=== PATIENT | male | born 1945 | race Two or more races ===

== ENCOUNTER 2018-02-21 22:05 | Inpatient (IN) | payer BC, MEDICARE, OTHER ==
[~2018-02-21] VITALS: Ht 170.2 cm; Wt 91.6 kg
[2018-02-21 23:47] LABS: Basophils # (auto) 0 uL; Basophils % (auto) 0.3 % (0.0-2.0); Eosinophils # (auto) 0 uL; Eosinophils % (auto) 0.1 % (0.0-7.0); Hematocrit 41.2 % (41.0-53.0); Hemoglobin 13.2 g/dL (13.5-17.5); Lymphocytes # (auto) 1.4 uL; Lymphocytes % (auto) 8.3 % (10.0-50.0); Mean Corpuscular Hemoglobin 28.5 pg (28.0-32.0); Mean Corpuscular Hgb Conc. 31.9 g/dL (32.0-36.0); Mean Corpuscular Volume 89.3 fL (80.0-100.0); Monocytes # (auto) 2.8 uL; Monocytes % (auto) 17.1 % (0.0-12.0); Neutrophils # (auto) 12.2 uL; Neutrophils % (auto) 74.2 % (37.0-80.0); Platelet Count (auto) 266 10^3/uL (140-450); Red Blood Cells 4.61 10^6/uL (4.5-5.90); Red Cell Distribution Width 17.6 % (11.8-14.3); White Blood Cell 16.4 10^3/uL (4.4-10.8)
[2018-02-21 23:54] LABS: INR 1.05 (0.9-1.15); Partial Thromboplastin Time 28.5 sec (23.78-33.04); Prothrombin Time 11.2 sec (9.27-12.13)
[2018-02-22 00:03] LABS: Albumin 3.2 g/dL (3.4-5.0); BUN/Creatinine Ratio 15.7; Calcium 8.9 mg/dL (8.5-10.1); Potassium 4.5 mmol/L (3.5-5.1)
[2018-02-22 00:06] LABS: Bilirubin, Total 0.7 mg/dL (0.2-1.0); Total Protein 7.8 g/dL (6.4-8.2)
[2018-02-22 00:37] LABS: Blood Alcohol < 3.0 mg/dL (0-5); Magnesium 2.2 mg/dL (1.6-2.6)
[2018-02-22 01:10] LABS: Urine Bacteria FEW /hpf (None Seen); Urine Blood Negative /uL (Negative); Urine Mucus FEW (None Seen); Urine Specific Gravity 1.025 (1.001-1.035); Urine WBC 5 /hpf (0 - 3)
[2018-02-22 01:25] LABS: Amphetamine Screen, Urine NEGATIVE (NEGATIVE); Barbiturate Scree,Urine NEGATIVE (NEGATIVE); Benzodiazephine Screen, Urine NEGATIVE (NEGATIVE); Cannabinoid Screen, Urine NEGATIVE (NEGATIVE); Cocaine Screen, Urine NEGATIVE (NEGATIVE); Opiate Scree,Urine NEGATIVE (NEGATIVE); Phencyclidine Screen, Urine NEGATIVE (NEGATIVE)
[2018-02-22] MEDS ORDERED: LORazepam 2MG/ML-1ML VIAL IV ONE ×3 (03:00→09:15)
[2018-02-22] MEDS ORDERED: SODIUM CHLORIDE 0.9% 1,000 ML IV ONE (04:15)
[2018-02-22] MEDS ORDERED: CLINDAMYCIN 900MG IV 50 ML IV ONE (04:15)
[2018-02-22] MEDS ORDERED: PIPERACILLIN-TAZOB 3.375GM 100 ML IV ONE (04:15)
[2018-02-22] MEDS ORDERED: ONDANSETRON HCL 4 MG/2 ML VIAL IV PRN (09:45)
[2018-02-22] MEDS ORDERED: DOCUSATE SOD 100 MG CAP PO PRN (09:45)
[2018-02-22] MEDS ORDERED: NITROGLYCERIN 0.4 MG SL TAB SL PRN (09:45)
[2018-02-22] MEDS ORDERED: ASPirin-EC 81 mg tab PO SCH (10:00)
[2018-02-22] MEDS ORDERED: FAMOTIDINE 20 MG TAB PO SCH (10:00)
[2018-02-22] MEDS: LISINOPRIL 10 MG TAB PO SCH (10:18)
[2018-02-22] MEDS: predniSONE 20 MG TAB PO SCH (10:19)
[2018-02-22] MEDS: PANTOPRAZOLE 40 MG TAB PO SCH (10:19)
[2018-02-22] MEDS: ZINC SULFATE 220mg CAP or TAB PO SCH (10:19)
[2018-02-22] MEDS: ASCORBIC ACID 500 MG TAB PO SCH ×2 (10:19→20:13)
[2018-02-22] MEDS: APIXABAN 5 MG TAB PO SCH ×2 (10:20→20:13)
[2018-02-22] MEDS: MULTIPLE VITAMIN TAB PO SCH (10:20)
[2018-02-22] MEDS: PIPERACILLIN-TAZOB 3.375GM 100 ML IV SCH ×3 (10:30→23:00)
[2018-02-22] MEDS: SODIUM CHLORIDE 0.9% 1,000 ML IV SCH (10:30)
[2018-02-22] MEDS: CLINDAMYCIN 300MG IV 50 ML IV SCH ×2 (13:07→20:13)
[2018-02-22] MEDS: MORPHINE SULF INJ 2 MG/ML SYRINGE 1ML IV PRN ×2 (13:36→20:52)
[2018-02-22 15:00] VITALS: BP 110/76
[2018-02-22 18:49] LABS: Folate (Folic Acid) 11.3 ng/mL (5.38-24)
[2018-02-22] MEDS: ATORVASTATIN 20 MG TAB PO SCH (20:13)
[2018-02-22 22:00] VITALS: BP 137/92
[2018-02-23] VITALS (34 sets, daily range): BP systolic 57–137; BP diastolic 31–95
[2018-02-23] MEDS ORDERED: LISI10TA6 PO (00:29)
[2018-02-23] MEDS ORDERED: MIRT30TA PO (00:34)
[2018-02-23] MEDS ORDERED: TAMS0.4C36 PO (00:35)
[2018-02-23] MEDS ORDERED: SULF500T8 PO (00:37)
[2018-02-23] MEDS ORDERED: OXY20CRT PO (00:56)
[2018-02-23] MEDS ORDERED: BUPR100T14 PO (00:56)
[2018-02-23] MEDS ORDERED: RIVA20TA PO (00:56)
[2018-02-23] MEDS ORDERED: CHOL20007 PO (00:56)
[2018-02-23] MEDS ORDERED: ATO40T PO (00:56)
[2018-02-23] MEDS ORDERED: PANT1INJ3 PO (00:56)
[2018-02-23] MEDS ORDERED: CALC667C PO (00:56)
[2018-02-23] MEDS ORDERED: METO-159 PO (00:56)
[2018-02-23] MEDS ORDERED: PRE5T PO (00:56)
[2018-02-23] MEDS ORDERED: DOCU-94 PO (00:56)
[2018-02-23] MEDS ORDERED: FLUT1SPR5 (00:56)
[2018-02-23] MEDS ORDERED: FEXO24TA9 PO (00:56)
[2018-02-23] MEDS ORDERED: OXY5T PO (00:56)
[2018-02-23] MEDS: MORPHINE SULF INJ 2 MG/ML SYRINGE 1ML IV PRN ×3 (01:10→22:00)
[2018-02-23] MEDS: SODIUM CHLORIDE 0.9% 1,000 ML IV SCH ×3 (02:16→20:28)
[2018-02-23 02:26] LABS: Basophils # (auto) 0 uL; Basophils % (auto) 0.5 % (0.0-2.0); Eosinophils # (auto) 0.1 uL; Eosinophils % (auto) 1.2 % (0.0-7.0); Hematocrit 41.3 % (41.0-53.0); Hemoglobin 13.2 g/dL (13.5-17.5); Lymphocytes # (auto) 0.3 uL; Lymphocytes % (auto) 3.6 % (10.0-50.0); Mean Corpuscular Hemoglobin 28.8 pg (28.0-32.0); Mean Corpuscular Hgb Conc. 31.9 g/dL (32.0-36.0); Mean Corpuscular Volume 90.1 fL (80.0-100.0); Monocytes # (auto) 1.1 uL; Monocytes % (auto) 13.2 % (0.0-12.0); Neutrophils # (auto) 6.6 uL; Neutrophils % (auto) 81.5 % (37.0-80.0); Platelet Count (auto) 266 10^3/uL (140-450); Red Blood Cells 4.58 10^6/uL (4.5-5.90); Red Cell Distribution Width 17.6 % (11.8-14.3); White Blood Cell 8.1 10^3/uL (4.4-10.8)
[2018-02-23 02:44] LABS: Alanine Aminotransferase 34 U/L (16-61); Albumin 2.6 g/dL (3.4-5.0); Anion Gap 10 (5-15); Aspartate Aminotransferase 57 U/L (15-37); BUN/Creatinine Ratio 13.3; Blood Urea Nitrogen 18 mg/dL (7-18); Carbon Dioxide 21 mmol/L (21-32); Chloride 101 mmol/L (98-107); GFR African American 66 mL/min; GFR Non-African American 55 mL/min; Glucose 108 mg/dL (74-106); Potassium 4.5 mmol/L (3.5-5.1); Sodium 132 mmol/L (136-145)
[2018-02-23 02:49] LABS: Alkaline Phosphatase 132 U/L (45-117); Bilirubin, Total 0.8 mg/dL (0.2-1.0); Total Protein 6.9 g/dL (6.4-8.2)
[2018-02-23] MEDS: PIPERACILLIN-TAZOB 3.375GM 100 ML IV SCH ×4 (03:52→21:16)
[2018-02-23] MEDS ORDERED: METOPROLOL TARTRATE 1MG/1ML-5ML VIAL IV ONE ×2 (04:00→07:00)
[2018-02-23] MEDS: CLINDAMYCIN 300MG IV 50 ML IV SCH ×3 (05:03→21:16)
[2018-02-23] MEDS ORDERED: DILTIAZEM HCL 25 MG/5 ML VIAL IV ONE (06:45)
[2018-02-23] MEDS ORDERED: IBUPROFEN 600 MG TAB PO PRN (07:00)
[2018-02-23] MEDS: HALOPERIDOL LACTATE 5 MG/ML INJ VIAL IM PRN (09:16)
[2018-02-23] MEDS: MULTIPLE VITAMIN TAB PO SCH (10:00)
[2018-02-23] MEDS: APIXABAN 5 MG TAB PO SCH ×2 (10:00→21:16)
[2018-02-23] MEDS: PANTOPRAZOLE 40 MG TAB PO SCH (10:00)
[2018-02-23] MEDS: CYANOCOBALAMIN 500 MCG TAB PO SCH (10:00)
[2018-02-23] MEDS: LISINOPRIL 10 MG TAB PO SCH (10:00)
[2018-02-23] MEDS: METOPROLOL TARTRATE 50 MG TAB PO SCH (10:00)
[2018-02-23] MEDS: predniSONE 20 MG TAB PO SCH (10:00)
[2018-02-23] MEDS: ZINC SULFATE 220mg CAP or TAB PO SCH (10:00)
[2018-02-23] MEDS: ASCORBIC ACID 500 MG TAB PO SCH ×2 (10:00→21:16)
[2018-02-23] MEDS ORDERED: ACETAMINOPHEN 500 MG TAB PO PRN (12:15)
[2018-02-23] MEDS ORDERED: IBUPROFEN 100MG/5ML ORAL SUSP 100 MG/5 ML UD GT PRN (12:30)
[2018-02-23] MEDS ORDERED: AMIODARONE HCL 150 MG in D5W 5% 100 ML IV ONE (12:30)
[2018-02-23] MEDS ORDERED: SODIUM CHLORIDE 0.9% 1,000 ML IV ONE (12:30)
[2018-02-23] MEDS ORDERED: AMIODARONE HCL 900 MG in DEXTROSE 500 ML IV SCH ×2 (12:37→15:14)
[2018-02-23] MEDS ORDERED: SODIUM CHLORIDE 0.9% 500 ML IV ONE (15:45)
[2018-02-23] MEDS: NOREPINEPHRINE 8 MG/250ML KIT 250 ML IV SCH (16:45)
[2018-02-23] MEDS: AMIODARONE HCL 900 MG in DEXTROSE 500 ML IV SCH (21:14)
[2018-02-23] MEDS: ATORVASTATIN 20 MG TAB PO SCH (21:17)
[2018-02-24] VITALS (91 sets, daily range): BP systolic 65–133; BP diastolic 17–90
[2018-02-24] MEDS: MORPHINE SULF INJ 2 MG/ML SYRINGE 1ML IV PRN (00:26)
[2018-02-24] MEDS: HALOPERIDOL LACTATE 5 MG/ML INJ VIAL IM PRN (00:54)
[2018-02-24] MEDS: PIPERACILLIN-TAZOB 3.375GM 100 ML IV SCH ×4 (04:00→21:37)
[2018-02-24] MEDS: CLINDAMYCIN 300MG IV 50 ML IV SCH (05:00)
[2018-02-24 06:20] LABS: Basophils # (auto) 0 uL; Basophils % (auto) 0.1 % (0.0-2.0); Eosinophils # (auto) 0 uL; Hematocrit 39.5 % (41.0-53.0); Lymphocytes # (auto) 0.2 uL; Lymphocytes % (auto) 1.3 % (10.0-50.0); Mean Corpuscular Hemoglobin 30.1 pg (28.0-32.0); Mean Corpuscular Volume 91.3 fL (80.0-100.0); Monocytes # (auto) 1.8 uL; Monocytes % (auto) 12.5 % (0.0-12.0); Neutrophils # (auto) 12.5 uL; Neutrophils % (auto) 86.1 % (37.0-80.0); Platelet Count (auto) 244 10^3/uL (140-450); Red Blood Cells 4.33 10^6/uL (4.5-5.90); Red Cell Distribution Width 17.5 % (11.8-14.3); White Blood Cell 14.5 10^3/uL (4.4-10.8)
[2018-02-24 06:23] LABS: Lactic Acid w/Reflex 4.1 mmol/L (0.4-2.0)
[2018-02-24 06:26] LABS: Albumin 2.1 g/dL (3.4-5.0); Calcium 7.8 mg/dL (8.5-10.1)
[2018-02-24 06:30] LABS: BUN/Creatinine Ratio 17.8; Bilirubin, Total 0.9 mg/dL (0.2-1.0); Total Protein 6.3 g/dL (6.4-8.2)
[2018-02-24] MEDS: NOREPINEPHRINE 8 MG/250ML KIT 250 ML IV SCH ×2 (07:58→20:56)
[2018-02-24] MEDS ORDERED: VANCOMYCIN PER PHARMACY 0 MG IV SCH (08:15)
[2018-02-24] MEDS ORDERED: VANCOMYCIN 1GM/250ML 250 ML IV ONE (09:00)
[2018-02-24] MEDS: APIXABAN 5 MG TAB PO SCH ×2 (09:32→21:37)
[2018-02-24] MEDS: METOPROLOL TARTRATE 50 MG TAB PO SCH (09:32)
[2018-02-24] MEDS: ZINC SULFATE 220mg CAP or TAB PO SCH (09:32)
[2018-02-24] MEDS: predniSONE 20 MG TAB PO SCH (09:32)
[2018-02-24] MEDS: PANTOPRAZOLE 40 MG TAB PO SCH (09:33)
[2018-02-24] MEDS: MULTIPLE VITAMIN TAB PO SCH (09:33)
[2018-02-24] MEDS: ASCORBIC ACID 500 MG TAB PO SCH ×2 (09:34→21:37)
[2018-02-24] MEDS: LISINOPRIL 10 MG TAB PO SCH (09:34)
[2018-02-24] MEDS: CYANOCOBALAMIN 500 MCG TAB PO SCH (09:34)
[2018-02-24] MEDS ORDERED: SODIUM CHLORIDE 0.9% 500 ML IV ONE (13:00)
[2018-02-24 13:36] LABS: Urine Bacteria NONE SEEN /hpf (None Seen); Urine Blood 1+ /uL (Negative); Urine WBC 8 /hpf (0 - 3)
[2018-02-24 15:34] LABS: Protein, Urine 116.1 mg/dL (0.0-11.9)
[2018-02-24] MEDS: AMIODARONE HCL 900 MG in DEXTROSE 500 ML IV SCH (15:38)
[2018-02-24] MEDS: SODIUM CHLORIDE 0.9% 1,000 ML IV SCH (20:54)
[2018-02-24] MEDS: ATORVASTATIN 20 MG TAB PO SCH (21:37)
[2018-02-25] VITALS (73 sets, daily range): BP systolic 82–153; BP diastolic 39–101
[2018-02-25] MEDS: MORPHINE SULF INJ 2 MG/ML SYRINGE 1ML IV PRN (01:46)
[2018-02-25] MEDS: PIPERACILLIN-TAZOB 3.375GM 100 ML IV SCH ×4 (04:45→21:47)
[2018-02-25 05:51] LABS: Lactic Acid w/Reflex 2.2 mmol/L (0.4-2.0)
[2018-02-25 05:56] LABS: Albumin 1.8 g/dL (3.4-5.0); BUN/Creatinine Ratio 23.1; Bilirubin, Total 0.6 mg/dL (0.2-1.0); Calcium 7.7 mg/dL (8.5-10.1); Phosphorus 2.2 mg/dL (2.5-4.90); Potassium 3.2 mmol/L (3.5-5.1); Total Protein 5.8 g/dL (6.4-8.2); Uric Acid 6.9 mg/dL (3.5-7.2)
[2018-02-25 06:07] LABS: Basophils # (auto) 0 uL; Basophils % (auto) 0.2 % (0.0-2.0); Eosinophils # (auto) 0 uL; Eosinophils % (auto) 0.2 % (0.0-7.0); Hematocrit 35.1 % (41.0-53.0); Hemoglobin 11.4 g/dL (13.5-17.5); Lymphocytes # (auto) 0.5 uL; Mean Corpuscular Hemoglobin 29.2 pg (28.0-32.0); Mean Corpuscular Hgb Conc. 32.4 g/dL (32.0-36.0); Monocytes # (auto) 2.5 uL; Monocytes % (auto) 16.4 % (0.0-12.0); Neutrophils # (auto) 12.3 uL; Neutrophils % (auto) 80.2 % (37.0-80.0); Platelet Count (auto) 206 10^3/uL (140-450); Red Cell Distribution Width 17.4 % (11.8-14.3); White Blood Cell 15.3 10^3/uL (4.4-10.8)
[2018-02-25] MEDS ORDERED: VANCOMYCIN 1GM/250ML 250 ML IV ONE (09:00)
[2018-02-25] MEDS: SODIUM CHLORIDE 0.9% 1,000 ML IV SCH ×3 (09:03→19:57)
[2018-02-25] MEDS ORDERED: POTASSIUM CHL 20 Meq TABLET PO ONE ×2 (10:00→12:15)
[2018-02-25] MEDS: ASCORBIC ACID 500 MG TAB PO SCH ×2 (11:16→21:47)
[2018-02-25] MEDS: METOPROLOL SUCCINATE XL 50 MG TAB PO SCH (11:16)
[2018-02-25] MEDS: PANTOPRAZOLE 40 MG TAB PO SCH (11:16)
[2018-02-25] MEDS: MULTIPLE VITAMIN TAB PO SCH (11:16)
[2018-02-25] MEDS: predniSONE 20 MG TAB PO SCH (11:16)
[2018-02-25] MEDS: ZINC SULFATE 220mg CAP or TAB PO SCH (11:17)
[2018-02-25] MEDS: APIXABAN 5 MG TAB PO SCH ×2 (11:17→21:47)
[2018-02-25] MEDS: CYANOCOBALAMIN 500 MCG TAB PO SCH (11:17)
[2018-02-25] MEDS: ATORVASTATIN 20 MG TAB PO SCH (21:47)
[2018-02-25] MEDS: AMIODARONE HCL 900 MG in DEXTROSE 500 ML IV SCH (23:37)
[2018-02-26] VITALS (62 sets, daily range): BP systolic 96–175; BP diastolic 44–106
[2018-02-26] MEDS: MORPHINE SULFATE 4 MG/ML SYR/VIAL IV PRN ×2 (02:20→12:30)
[2018-02-26] MEDS: SODIUM CHLORIDE 0.9% 1,000 ML IV SCH ×2 (03:53→13:33)
[2018-02-26] MEDS: PIPERACILLIN-TAZOB 3.375GM 100 ML IV SCH ×4 (03:53→21:52)
[2018-02-26 05:23] LABS: Basophils # (auto) 0 uL; Basophils % (auto) 0.1 % (0.0-2.0); Eosinophils # (auto) 0.1 uL; Eosinophils % (auto) 0.9 % (0.0-7.0); Hematocrit 32.4 % (41.0-53.0); Hemoglobin 10.4 g/dL (13.5-17.5); Lymphocytes # (auto) 0.6 uL; Lymphocytes % (auto) 4.6 % (10.0-50.0); Mean Corpuscular Hemoglobin 28.4 pg (28.0-32.0); Mean Corpuscular Volume 88.8 fL (80.0-100.0); Monocytes # (auto) 1.9 uL; Monocytes % (auto) 14.6 % (0.0-12.0); Neutrophils # (auto) 10.4 uL; Neutrophils % (auto) 79.8 % (37.0-80.0); Platelet Count (auto) 178 10^3/uL (140-450); Red Blood Cells 3.65 10^6/uL (4.5-5.90); Red Cell Distribution Width 17.8 % (11.8-14.3)
[2018-02-26 05:56] LABS: Albumin 1.7 g/dL (3.4-5.0); BUN/Creatinine Ratio 27.5; Bilirubin, Total 0.5 mg/dL (0.2-1.0); Calcium 7.7 mg/dL (8.5-10.1); Potassium 3.5 mmol/L (3.5-5.1); Total Protein 5.5 g/dL (6.4-8.2)
[2018-02-26] MEDS ORDERED: VANCOMYCIN 1GM/250ML 250 ML IV ONE (10:00)
[2018-02-26] MEDS: ZINC SULFATE 220mg CAP or TAB PO SCH (10:03)
[2018-02-26] MEDS: METOPROLOL SUCCINATE XL 50 MG TAB PO SCH (10:04)
[2018-02-26] MEDS: PANTOPRAZOLE 40 MG TAB PO SCH (10:04)
[2018-02-26] MEDS: APIXABAN 5 MG TAB PO SCH ×2 (10:04→21:33)
[2018-02-26] MEDS: MULTIPLE VITAMIN TAB PO SCH (10:04)
[2018-02-26] MEDS: CYANOCOBALAMIN 500 MCG TAB PO SCH (10:04)
[2018-02-26] MEDS: ASCORBIC ACID 500 MG TAB PO SCH ×2 (10:04→21:33)
[2018-02-26] MEDS: predniSONE 20 MG TAB PO SCH (10:05)
[2018-02-26] MEDS: NOREPINEPHRINE 8 MG/250ML KIT 250 ML IV SCH (16:19)
[2018-02-26] MEDS: cloNIDine HCL 0.1 MG TAB PO PRN (17:40)
[2018-02-26] MEDS ORDERED: BRIM0.1S3 RIGHTEYE (18:33)
[2018-02-26] MEDS ORDERED: DORZ1SOL RIGHTEYE (18:33)
[2018-02-26] MEDS: AMIODARONE HCL 900 MG in DEXTROSE 500 ML IV SCH (21:14)
[2018-02-26] MEDS: ATORVASTATIN 20 MG TAB PO SCH (21:33)
[2018-02-26] MEDS ORDERED: FUROSEMIDE 20 MG/2 ML VIAL ONE (21:43)
[2018-02-26] MEDS ORDERED: FUROSEMIDE 20 MG/2 ML VIAL IV ONE (21:45)
[2018-02-27] VITALS (68 sets, daily range): BP systolic 114–178; BP diastolic 71–123
[2018-02-27] MEDS: SODIUM CHLORIDE 0.9% 1,000 ML IV SCH ×3 (00:30→16:30)
[2018-02-27] MEDS: PIPERACILLIN-TAZOB 3.375GM 100 ML IV SCH ×4 (03:29→21:26)
[2018-02-27 05:31] LABS: Calcium 7.8 mg/dL (8.5-10.1); Potassium 3.3 mmol/L (3.5-5.1)
[2018-02-27 05:33] LABS: BUN/Creatinine Ratio 18.6
[2018-02-27 05:58] LABS: Hemoglobin 10.4 g/dL (13.5-17.5); Mean Corpuscular Hemoglobin 29.4 pg (28.0-32.0); Mean Corpuscular Hgb Conc. 32.5 g/dL (32.0-36.0); Mean Corpuscular Volume 90.4 fL (80.0-100.0); Platelet Count (auto) 196 10^3/uL (140-450); Red Blood Cells 3.54 10^6/uL (4.5-5.90); Red Cell Distribution Width 17.6 % (11.8-14.3); White Blood Cell 11.4 10^3/uL (4.4-10.8)
[2018-02-27 06:06] LABS: Basophils % (manual) 0 (0.0-2.0); Blast Cells 0; Metamyelocytes % 0; Myelocytes % 0; Promyelocytes % 0; Reactive Lymphocytes 0
[2018-02-27 08:23] LABS: Band Neutrophils % (manual) 6; Eosinophils % (manual) 3 (0-7); Lymphocytes % (manual) 6 (10.0-50.0); Monocytes % (manual) 15 (0-12)
[2018-02-27] MEDS: PANTOPRAZOLE 40 MG TAB PO SCH (10:03)
[2018-02-27] MEDS: CYANOCOBALAMIN 500 MCG TAB PO SCH (10:03)
[2018-02-27] MEDS: ASCORBIC ACID 500 MG TAB PO SCH ×2 (10:03→21:26)
[2018-02-27] MEDS: APIXABAN 5 MG TAB PO SCH ×2 (10:03→21:26)
[2018-02-27] MEDS: METOPROLOL SUCCINATE XL 50 MG TAB PO SCH (10:04)
[2018-02-27] MEDS: MULTIPLE VITAMIN TAB PO SCH (10:04)
[2018-02-27] MEDS: predniSONE 20 MG TAB PO SCH (10:04)
[2018-02-27] MEDS: ZINC SULFATE 220mg CAP or TAB PO SCH (10:04)
[2018-02-27] MEDS: AMIODARONE HCL 900 MG in DEXTROSE 500 ML IV SCH (10:39)
[2018-02-27] MEDS ORDERED: POTASSIUM CHL 20 Meq TABLET PO ONE ×2 (10:45→11:17)
[2018-02-27] MEDS: VANCOMYCIN 1GM/250ML 250 ML IV SCH (11:23)
[2018-02-27] MEDS: NOREPINEPHRINE 8 MG/250ML KIT 250 ML IV SCH (15:41)
[2018-02-27] MEDS: ATORVASTATIN 20 MG TAB PO SCH (21:26)
[2018-02-27] MEDS: cloNIDine HCL 0.1 MG TAB PO PRN (21:27)
[2018-02-28] VITALS (10 sets, daily range): BP systolic 109–179; BP diastolic 61–103
[2018-02-28] MEDS: SODIUM CHLORIDE 0.9% 1,000 ML IV SCH ×3 (00:22→11:13)
[2018-02-28] MEDS: PIPERACILLIN-TAZOB 3.375GM 100 ML IV SCH ×4 (04:01→22:13)
[2018-02-28] MEDS: MORPHINE SULFATE 4 MG/ML SYR/VIAL IV PRN ×2 (04:18→12:09)
[2018-02-28] MEDS: VANCOMYCIN 1GM/250ML 250 ML IV SCH ×2 (05:01→23:32)
[2018-02-28 06:00] LABS: Hemoglobin 10.1 g/dL (13.5-17.5); Mean Corpuscular Hemoglobin 29.8 pg (28.0-32.0); Mean Corpuscular Hgb Conc. 33.6 g/dL (32.0-36.0); Mean Corpuscular Volume 88.6 fL (80.0-100.0); Platelet Count (auto) 217 10^3/uL (140-450); Red Blood Cells 3.39 10^6/uL (4.5-5.90); Red Cell Distribution Width 17.3 % (11.8-14.3)
[2018-02-28 06:04] LABS: Albumin 1.6 g/dL (3.4-5.0); Calcium 7.8 mg/dL (8.5-10.1); Potassium 3.4 mmol/L (3.5-5.1)
[2018-02-28 06:06] LABS: BUN/Creatinine Ratio 20.6
[2018-02-28 06:09] LABS: Bilirubin, Total 0.6 mg/dL (0.2-1.0); Total Protein 5.2 g/dL (6.4-8.2)
[2018-02-28] MEDS: cloNIDine HCL 0.1 MG TAB PO PRN (06:14)
[2018-02-28 06:19] LABS: Basophils % (manual) 0 (0.0-2.0); Blast Cells 0; Metamyelocytes % 0; Myelocytes % 0; Promyelocytes % 0; Reactive Lymphocytes 0
[2018-02-28 08:36] LABS: Band Neutrophils % (manual) 2; Eosinophils % (manual) 3 (0-7); Lymphocytes % (manual) 7 (10.0-50.0); Monocytes % (manual) 13 (0-12)
[2018-02-28] MEDS ORDERED: POTASSIUM CHL 20 Meq TABLET PO ONE (10:30)
[2018-02-28] MEDS: MULTIPLE VITAMIN TAB PO SCH (10:46)
[2018-02-28] MEDS: predniSONE 20 MG TAB PO SCH (10:46)
[2018-02-28] MEDS: ZINC SULFATE 220mg CAP or TAB PO SCH (10:47)
[2018-02-28] MEDS: ASCORBIC ACID 500 MG TAB PO SCH ×2 (10:47→22:13)
[2018-02-28] MEDS: APIXABAN 5 MG TAB PO SCH ×2 (10:47→22:12)
[2018-02-28] MEDS: CYANOCOBALAMIN 500 MCG TAB PO SCH (10:47)
[2018-02-28] MEDS: PANTOPRAZOLE 40 MG TAB PO SCH (10:47)
[2018-02-28] MEDS: AMIODARONE HCL 200 MG TAB PO SCH ×2 (10:47→22:13)
[2018-02-28] MEDS: METOPROLOL SUCCINATE XL 50 MG TAB PO SCH (10:49)
[2018-02-28] MEDS ORDERED: ALBUTEROL SULF 2.5 MG/0.5ML(0.5%) NEB SOLN NEB ONE (11:15)
[2018-02-28] MEDS: ALBUTEROL SULF 2.5 MG/0.5ML(0.5%) NEB SOLN NEB SCH ×3 (14:24→22:24)
[2018-02-28] MEDS: ATORVASTATIN 20 MG TAB PO SCH (22:13)
[2018-03-01] VITALS: BP 141/83
[2018-03-01] MEDS: ALBUTEROL SULF 2.5 MG/0.5ML(0.5%) NEB SOLN NEB SCH ×7 (00:40→22:30)
[2018-03-01 04:00] VITALS: BP 89/46
[2018-03-01] MEDS: PIPERACILLIN-TAZOB 3.375GM 100 ML IV SCH ×4 (05:21→21:38)
[2018-03-01] MEDS: SODIUM CHLORIDE 0.9% 1,000 ML IV SCH ×3 (05:22→21:38)
[2018-03-01 05:32] LABS: Hematocrit 29.4 % (41.0-53.0); Hemoglobin 9.7 g/dL (13.5-17.5); Mean Corpuscular Hemoglobin 29.3 pg (28.0-32.0); Mean Corpuscular Hgb Conc. 32.8 g/dL (32.0-36.0); Mean Corpuscular Volume 89.2 fL (80.0-100.0); Platelet Count (auto) 262 10^3/uL (140-450); Red Cell Distribution Width 17.3 % (11.8-14.3)
[2018-03-01 05:35] LABS: Basophils % (manual) 0 (0.0-2.0); Blast Cells 0; Myelocytes % 0; Promyelocytes % 0; Reactive Lymphocytes 0
[2018-03-01 06:02] LABS: Albumin 1.7 g/dL (3.4-5.0); Calcium 7.9 mg/dL (8.5-10.1); Potassium 3.8 mmol/L (3.5-5.1)
[2018-03-01 06:05] LABS: BUN/Creatinine Ratio 13.6
[2018-03-01 06:08] LABS: Bilirubin, Total 0.5 mg/dL (0.2-1.0); Total Protein 5.5 g/dL (6.4-8.2)
[2018-03-01 06:26] LABS: Band Neutrophils % (manual) 3; Eosinophils % (manual) 2 (0-7); Lymphocytes % (manual) 11 (10.0-50.0); Metamyelocytes % 2; Monocytes % (manual) 10 (0-12)
[2018-03-01 07:30] VITALS: BP 141/90
[2018-03-01] MEDS: ASCORBIC ACID 500 MG TAB PO SCH ×2 (09:30→21:38)
[2018-03-01] MEDS: METOPROLOL SUCCINATE XL 50 MG TAB PO SCH (09:30)
[2018-03-01] MEDS: CYANOCOBALAMIN 500 MCG TAB PO SCH (09:30)
[2018-03-01] MEDS: MULTIPLE VITAMIN TAB PO SCH (09:30)
[2018-03-01] MEDS: ZINC SULFATE 220mg CAP or TAB PO SCH (09:30)
[2018-03-01] MEDS: PANTOPRAZOLE 40 MG TAB PO SCH (09:30)
[2018-03-01] MEDS: predniSONE 20 MG TAB PO SCH (09:30)
[2018-03-01] MEDS: AMIODARONE HCL 200 MG TAB PO SCH ×2 (09:31→21:38)
[2018-03-01] MEDS: APIXABAN 5 MG TAB PO SCH ×2 (10:27→21:38)
[2018-03-01 12:00] VITALS: BP 150/85
[2018-03-01] MEDS: MORPHINE SULFATE 4 MG/ML SYR/VIAL IV PRN (13:13)
[2018-03-01 17:00] VITALS: BP 156/91
[2018-03-01] MEDS: VANCOMYCIN 1GM/250ML 250 ML IV SCH (17:00)
[2018-03-01 20:34] VITALS: BP 130/80
[2018-03-01] MEDS: MORPHINE SULF INJ 2 MG/ML SYRINGE 1ML IV PRN (21:16)
[2018-03-01] MEDS: ATORVASTATIN 20 MG TAB PO SCH (21:39)
[2018-03-02] MEDS: MORPHINE SULFATE 4 MG/ML SYR/VIAL IV PRN ×2 (03:07→09:49)
[2018-03-02] MEDS: PIPERACILLIN-TAZOB 3.375GM 100 ML IV SCH ×4 (03:33→21:22)
[2018-03-02 04:53] VITALS: BP 137/78
[2018-03-02] MEDS: ALBUTEROL SULF 2.5 MG/0.5ML(0.5%) NEB SOLN NEB SCH ×5 (05:50→22:37)
[2018-03-02 06:31] LABS: Hematocrit 26.9 % (41.0-53.0); Hemoglobin 8.8 g/dL (13.5-17.5); Mean Corpuscular Hemoglobin 29.3 pg (28.0-32.0); Mean Corpuscular Hgb Conc. 32.9 g/dL (32.0-36.0); Mean Corpuscular Volume 89.1 fL (80.0-100.0); Platelet Count (auto) 287 10^3/uL (140-450); Red Blood Cells 3.02 10^6/uL (4.5-5.90); Red Cell Distribution Width 17.6 % (11.8-14.3); White Blood Cell 12.5 10^3/uL (4.4-10.8)
[2018-03-02 06:54] LABS: Basophils % (manual) 0 (0.0-2.0); Blast Cells 0; Metamyelocytes % 0; Myelocytes % 0; Promyelocytes % 0; Reactive Lymphocytes 0
[2018-03-02 07:15] LABS: Albumin 1.7 g/dL (3.4-5.0); BUN/Creatinine Ratio 10.5; Bilirubin, Total 0.5 mg/dL (0.2-1.0); Calcium 8.1 mg/dL (8.5-10.1); Potassium 3.6 mmol/L (3.5-5.1); Total Protein 5.4 g/dL (6.4-8.2)
[2018-03-02 07:18] LABS: Band Neutrophils % (manual) 1; Eosinophils % (manual) 1 (0-7); Lymphocytes % (manual) 13 (10.0-50.0); Monocytes % (manual) 15 (0-12)
[2018-03-02] MEDS: ASCORBIC ACID 500 MG TAB PO SCH ×2 (09:50→21:23)
[2018-03-02] MEDS: ZINC SULFATE 220mg CAP or TAB PO SCH (09:50)
[2018-03-02] MEDS: APIXABAN 5 MG TAB PO SCH ×2 (09:50→21:22)
[2018-03-02] MEDS: MULTIPLE VITAMIN TAB PO SCH (09:50)
[2018-03-02] MEDS: METOPROLOL SUCCINATE XL 50 MG TAB PO SCH (09:50)
[2018-03-02] MEDS: PANTOPRAZOLE 40 MG TAB PO SCH (09:50)
[2018-03-02] MEDS: CYANOCOBALAMIN 500 MCG TAB PO SCH (09:50)
[2018-03-02] MEDS: predniSONE 20 MG TAB PO SCH (09:51)
[2018-03-02] MEDS: AMIODARONE HCL 200 MG TAB PO SCH ×2 (09:51→21:23)
[2018-03-02] MEDS ORDERED: IBUPROFEN 400 MG TAB PO PRN (11:00)
[2018-03-02] MEDS: VANCOMYCIN 1GM/250ML 250 ML IV SCH (12:00)
[2018-03-02] MEDS: SODIUM CHLORIDE 0.9% 1,000 ML IV SCH ×2 (15:05→21:03)
[2018-03-02] MEDS: ATORVASTATIN 20 MG TAB PO SCH (21:23)
[2018-03-02 22:00] VITALS: BP 139/77
[2018-03-03] VITALS (7 sets, daily range): BP systolic 126–169; BP diastolic 70–121
[2018-03-03] MEDS: ALBUTEROL SULF 2.5 MG/0.5ML(0.5%) NEB SOLN NEB SCH ×6 (02:17→22:40)
[2018-03-03] MEDS: SODIUM CHLORIDE 0.9% 1,000 ML IV SCH ×2 (04:25→17:45)
[2018-03-03] MEDS: PIPERACILLIN-TAZOB 3.375GM 100 ML IV SCH ×4 (04:26→22:00)
[2018-03-03] MEDS: VANCOMYCIN 1GM/250ML 250 ML IV SCH ×2 (04:51→22:41)
[2018-03-03 06:56] LABS: Hematocrit 26.1 % (41.0-53.0); Hemoglobin 8.6 g/dL (13.5-17.5); Mean Corpuscular Hemoglobin 29.6 pg (28.0-32.0); Mean Corpuscular Volume 89.8 fL (80.0-100.0); Platelet Count (auto) 324 10^3/uL (140-450); Red Blood Cells 2.91 10^6/uL (4.5-5.90); Red Cell Distribution Width 17.6 % (11.8-14.3); White Blood Cell 14.5 10^3/uL (4.4-10.8)
[2018-03-03 07:10] LABS: Albumin 1.6 g/dL (3.4-5.0); BUN/Creatinine Ratio 8.5; Calcium 7.6 mg/dL (8.5-10.1); Potassium 3.6 mmol/L (3.5-5.1)
[2018-03-03 07:13] LABS: Bilirubin, Total 0.4 mg/dL (0.2-1.0); Total Protein 5.4 g/dL (6.4-8.2)
[2018-03-03 07:16] LABS: Band Neutrophils % (manual) 0; Basophils % (manual) 0 (0.0-2.0); Blast Cells 0; Eosinophils % (manual) 0 (0-7); Metamyelocytes % 0; Myelocytes % 0; Promyelocytes % 0; Reactive Lymphocytes 0
[2018-03-03 08:04] LABS: Lymphocytes % (manual) 8 (10.0-50.0); Monocytes % (manual) 8 (0-12)
[2018-03-03] MEDS: cloNIDine HCL 0.1 MG TAB PO PRN (08:28)
[2018-03-03] MEDS: AMIODARONE HCL 200 MG TAB PO SCH ×2 (10:04→22:40)
[2018-03-03] MEDS: APIXABAN 5 MG TAB PO SCH ×2 (10:05→22:40)
[2018-03-03] MEDS: METOPROLOL SUCCINATE XL 50 MG TAB PO SCH (10:07)
[2018-03-03] MEDS: PANTOPRAZOLE 40 MG TAB PO SCH (10:08)
[2018-03-03] MEDS: ASCORBIC ACID 500 MG TAB PO SCH ×2 (10:09→22:00)
[2018-03-03] MEDS: CYANOCOBALAMIN 500 MCG TAB PO SCH (10:10)
[2018-03-03] MEDS: MULTIPLE VITAMIN TAB PO SCH (10:10)
[2018-03-03] MEDS: predniSONE 20 MG TAB PO SCH (10:13)
[2018-03-03] MEDS: ZINC SULFATE 220mg CAP or TAB PO SCH (10:13)
[2018-03-03] MEDS: ATORVASTATIN 20 MG TAB PO SCH (22:40)
[2018-03-04] MEDS: ALBUTEROL SULF 2.5 MG/0.5ML(0.5%) NEB SOLN NEB SCH ×4 (02:00→14:23)
[2018-03-04] MEDS: PIPERACILLIN-TAZOB 3.375GM 100 ML IV SCH ×2 (03:20→09:32)
[2018-03-04] MEDS: MORPHINE SULF INJ 2 MG/ML SYRINGE 1ML IV PRN (03:25)
[2018-03-04 05:38] VITALS: BP 144/76
[2018-03-04 07:13] LABS: Hematocrit 25.4 % (41.0-53.0); Hemoglobin 8.6 g/dL (13.5-17.5); Mean Corpuscular Hemoglobin 30.4 pg (28.0-32.0); Mean Corpuscular Hgb Conc. 33.9 g/dL (32.0-36.0); Mean Corpuscular Volume 89.6 fL (80.0-100.0); Platelet Count (auto) 355 10^3/uL (140-450); Red Blood Cells 2.83 10^6/uL (4.5-5.90); Red Cell Distribution Width 17.8 % (11.8-14.3); White Blood Cell 14.6 10^3/uL (4.4-10.8)
[2018-03-04 07:35] LABS: Albumin 1.7 g/dL (3.4-5.0); BUN/Creatinine Ratio 8.2; Calcium 7.2 mg/dL (8.5-10.1); Potassium 3.7 mmol/L (3.5-5.1)
[2018-03-04 07:36] LABS: Basophils % (manual) 0 (0.0-2.0); Blast Cells 0; Metamyelocytes % 0; Promyelocytes % 0; Reactive Lymphocytes 0
[2018-03-04 07:44] LABS: Bilirubin, Total 0.5 mg/dL (0.2-1.0); Total Protein 5.5 g/dL (6.4-8.2)
[2018-03-04 08:39] LABS: Band Neutrophils % (manual) 3; Eosinophils % (manual) 2 (0-7); Lymphocytes % (manual) 5 (10.0-50.0); Monocytes % (manual) 10 (0-12); Myelocytes % 1
[2018-03-04] MEDS: PANTOPRAZOLE 40 MG TAB PO SCH (09:32)
[2018-03-04] MEDS: ASCORBIC ACID 500 MG TAB PO SCH (09:32)
[2018-03-04] MEDS: predniSONE 20 MG TAB PO SCH (09:32)
[2018-03-04] MEDS: MULTIPLE VITAMIN TAB PO SCH (09:33)
[2018-03-04] MEDS: ZINC SULFATE 220mg CAP or TAB PO SCH (09:33)
[2018-03-04] MEDS: APIXABAN 5 MG TAB PO SCH (09:33)
[2018-03-04] MEDS: AMIODARONE HCL 200 MG TAB PO SCH (09:33)
[2018-03-04] MEDS: CYANOCOBALAMIN 500 MCG TAB PO SCH (09:33)
[2018-03-04] MEDS: METOPROLOL SUCCINATE XL 50 MG TAB PO SCH (09:34)
[2018-03-04 13:13] VITALS: BP 157/97
== END 2018-03-04 13:10 | DRG 871 ==
LOC: EDBD 22:05 → ER 22:05 → TELE 22:06 → TELE-WESTW 02-22 15:32 → DOU IN ICU 02-23 15:30 → EAST 03-01 15:50 → TELE-EAST 03-02 10:42
PROVIDERS: ADMIT Internal Medicine; ATTEND Family Medicine
DX: A41.9 Sepsis, unspecified organism (principal); G92 Toxic encephalopathy; N17.0 Acute kidney failure with tubular necrosis; R65.21 Severe sepsis with septic shock; I50.31 Acute diastolic (congestive) heart failure; S22.41XA Multiple fractures of ribs, right side, initial encounter for closed fracture; S42.401A Unspecified fracture of lower end of right humerus, initial encounter for closed fracture; L03.113 Cellulitis of right upper limb; N39.0 Urinary tract infection, site not specified; D68.69 Other thrombophilia; E87.1 Hypo-osmolality and hyponatremia; I13.0 Hypertensive heart and chronic kidney disease with heart failure and stage 1 through stage 4 chronic kidney disease, or unspecified chronic kidney disease; I50.30 Unspecified diastolic (congestive) heart failure; J44.1 Chronic obstructive pulmonary disease with (acute) exacerbation; M19.90 Unspecified osteoarthritis, unspecified site; K21.9 Gastro-esophageal reflux disease without esophagitis; N18.3 Chronic kidney disease, stage 3 (moderate); D63.8 Anemia in other chronic diseases classified elsewhere; E78.00 Pure hypercholesterolemia, unspecified; E86.0 Dehydration; E87.6 Hypokalemia; F03.90 Unspecified dementia, unspecified severity, without behavioral disturbance, psychotic disturbance, mood disturbance, and anxiety; F17.200 Nicotine dependence, unspecified, uncomplicated; I48.91 Unspecified atrial fibrillation; H40.9 Unspecified glaucoma; M06.9 Rheumatoid arthritis, unspecified; M48.02 Spinal stenosis, cervical region; N40.0 Benign prostatic hyperplasia without lower urinary tract symptoms; S52.121A Displaced fracture of head of right radius, initial encounter for closed fracture; T38.0X5A Adverse effect of glucocorticoids and synthetic analogues, initial encounter; W18.30XA Fall on same level, unspecified, initial encounter; Z79.01 Long term (current) use of anticoagulants; R29.6 Repeated falls; Z79.899 Other long term (current) drug therapy; Z81.8 Family history of other mental and behavioral disorders; Z82.49 Family history of ischemic heart disease and other diseases of the circulatory system; Z85.840 Personal history of malignant neoplasm of eye; Z86.718 Personal history of other venous thrombosis and embolism; Z91.81 History of falling; Z95.0 Presence of cardiac pacemaker; Y92.000 Kitchen of unspecified non-institutional (private) residence as the place of occurrence of the external cause; Z86.73 Personal history of transient ischemic attack (TIA), and cerebral infarction without residual deficits
CPT/HCPCS: 36415; 36600; 70450; 71045; 72125; 73070; 73200; 78582; 80048; 80053; 80202; 80307; 80320; 81001; 82140; 82550; 82570; 82607; 82746; 82805; 83605; 83735; 83880; 84100; 84156; 84300; 84443; 84484; 84550; 85007; 85025; 85027; 85379; 85610; 85730; 86141; 87040; 87081; 87086; 87493; 92610; 93005; 93306; 93886; 93970; 94640; 94761; 95819; 96365; 96366; 96375; 96376; 97110; 97530; A6257; J2405; J2543; J3490; J7060